=== PATIENT | female | born 1945 | race African-American/Black ===

== ENCOUNTER 2021-04-11 23:15 | Observation (INO) | payer MEDICARE ==
[~2021-04-11] VITALS: Ht 157.5 cm; Wt 88.3 kg
--- NOTE | 2021-04-11 23:25 | PHYS DOC ---
Past History Past Medical History: Cancer General Adult HPI: HPI: "...I was watching [employer] game.. and they... but I guess..I passed out....all I know.. was they were picking me up off.. the floor....I been a little dizzy for a while seeing a cancer doctor for my multiple myeloma..... I did get my flu shot today.. and my Moderna booster..." Patient is a 75 year old female who presents with above hx of dizzy, near syncope event with fall and striking her head. Patient has past medical history of coronary artery disease and has undergone bypass surgery approximately 15 years ago. Has had angioplasty with stent placement since then. Patient recently being treated for multiple myeloma. Patient also has history of asthma, anemia, diverticulitis, hypertension, diabetes, TIA and CVAs. Patient has had endarterectomy on right. Patient follows with Sen [facility] Review of Systems: Review of Systems: Constitutional: Denies fever or chills Eyes: Denies change in visual acuity HENT: Denies nasal congestion or sore throat Respiratory: Denies cough or shortness of breath Cardiovascular: Denies chest pain or edema. Complains of syncope GI: Denies abdominal pain, nausea, vomiting, bloody stools or diarrhea : Denies dysuria Musculoskeletal: Denies back pain or joint pain Integument: Denies rash Neurologic: Denies headache, focal weakness or sensory changes Endocrine: Denies polyuria or polydipsia Lymphatic: Denies swollen glands Psychiatric: Denies depression or anxiety Family History: Family History: Noncontributory to presentation. Current Medications: Current Meds: See nursing for home meds Allergies: Allergies: Allergic to sulfa. Physical Exam: PE: Constitutional: , no acute distress, non-toxic appearance. [] HENT: Normocephalic, atraumatic, bilateral external ears normal, oropharynx moist, no oral exudates, nose normal. [] Eyes: PERRLA, EOMI, conjunctiva pale, no discharge. [] Neck: Normal range of motion, no tenderness, supple, no stridor. [] Cardiovascular:Heart rate regular rhythm, no murmur [] Lungs & Thorax: Bilateral breath sounds to apex and basilar crackles bilaterally on auscultation [] Abdomen: Bowel sounds normal, soft, no tenderness, no masses, no pulsatile masses. Obese Skin: Warm, dry, no erythema, no rash. Pale Back: No tenderness, no CVA tenderness. [] Extremities: No tenderness, no cyanosis, no clubbing, ROM intact, bilateral ankle edema. No cording appreciated. Neurologic: Alert and oriented X 3, normal motor function, normal sensory function, no focal deficits noted. [] Psychologic: Affect anxious, , judgement normal, mood normal. [] EKG: EKG: My interpretation EKG shows sinus rhythm at 81 bpm. Some T wave strain pattern but no findings acute STEMI with contralateral changes. Time of this EKG is 2320 hrs. [] Radiology/Procedures: Radiology/Procedures: [address] [address] IMAGING REPORT Signed PATIENT: SHIVANI RODRIGUEZ ACCOUNT: [id number] : 1945 LOCATION: ER AGE: 75 SEX: F EXAM STATUS: PRE ER ORD. PHYSICIAN: VALENCIA SNOW MD REASON: fall hit head PROCEDURE: CT HEAD AND CERVICAL SPINE WO RS Compliance Statement: One or more of the following individualized dose reduction techniques were utilized for this examination: 1. Automated exposure control 2. Adjustment of the mA and/or kV according to patient size 3. Use of iterative reconstruction technique CT head and cervical spine without contrast 04/11/2021 12:11 AM INDICATION: Fall, hit head COMPARISON: None TECHNIQUE: Multiple axial CT images of the head were obtained from skull base through the vertex without intravenous contrast. Multiple axial CT images of the cervical spine were obtained without intravenous contrast. Coronal and sagittal reformats are provided. FINDINGS: Head: Ventricles, sulci and basal cisterns are within normal limits. There is no hydrocephalus. Gamble-white matter differentiation is normal. There is no acute intracranial hemorrhage. There is no mass, mass effect or midline shift. Type Cutter ior fossa is normal in appearance. Visualized portions of the orbits are normal. Paranasal sinuses are well aerated. Mastoid air cells are well aerated. Scalp and calvaria are normal. Cervical spine: Alignment of the cervical spine is normal. Skull base is intact. Craniocervical junction is normal in appearance. Atlantoaxial articulation is normal. Vertebral body heights are maintained without evidence for acute fracture. Mild facet and uncovertebral joint disease. No significant osseous neural foraminal stenosis. No significant osseous spinal canal stenosis. Transverse foramen are intact. There is no prevertebral soft tissue swelling. Thyroid gland is normal in appearance. Visualized portions of the lung apices are normal without evidence for suspicious pulmonary nodule or infiltrate. IMPRESSION: 1. No acute intracranial hemorrhage. 2. No acute fracture or malalignment of the cervical spine. Mild cervical spondylosis. Electronically signed by: Troy Haddad MD (04/12/2021 12:41 AM) [facility] DICTATED AND SIGNED BY: TROY HADDAD MD DATE: 04/12/2138 CC: VALENCIA SNOW MD ~MTH0 [address] [address] IMAGING REPORT Signed PATIENT: SHIVANI RODRIGUEZ ACCOUNT: [id number] : 1945 LOCATION: ER AGE: 75 SEX: F EXAM STATUS: PRE ER ORD. PHYSICIAN: VALENCIA SNOW MD REASON: fall hit head PROCEDURE: CT HEAD AND CERVICAL SPINE WO [facility] Compliance Statement: One or more of the following individualized dose reduction techniques were ut ilized for this examination: 1. Automated exposure control 2. Adjustment of the mA and/or kV according to patient size 3. Use of iterative reconstruction technique CT head and cervical spine without contrast 04/11/2021 12:11 AM INDICATION: Fall, hit head COMPARISON: None TECHNIQUE: Multiple axial CT images of the head were obtained from skull base through the vertex without intravenous contrast. Multiple axial CT images of the cervical spine were obtained without intravenous contrast. Coronal and sagittal reformats are provided. FINDINGS: Head: Ventricles, sulci and basal cisterns are within normal limits. There is no h ydrocephalus. Gamble-white matter differentiation is normal. There is no acute intracranial hemorrhage. There is no mass, mass effect or midline shift. Posterior fossa is normal in appearance. Visualized portions of the orbits are normal. Paranasal sinuses are well aerated. Mastoid air cells are well aerated. Scalp and calvaria are normal. Cervical spine: Alignment of the cervical spine is normal. Skull base is intact. Craniocervical junction is normal in appearance. Atlantoaxial articulation is normal. Vertebral body heights are maintained without evidence for acute fracture. Mild facet and uncovertebral joint disease. No significant osseous neural foraminal stenosis. No significant osseous spinal canal stenosis. Transverse foramen are intact. There is no prevertebral soft tissue swelling. Thyroid gland is normal in appearance. Visualized portions of the lung apices are normal without evidence for suspicious pulmonary nodule or infiltrate. IMPRESSION: 1. No acute intracranial hemorrhage. 2. No acute fracture or malalignment of the cervical spine. Mild cervical spondylosis. Electronically signed by: Troy Haddad MD (04/12/2021 12:41 AM) [facility] DICTATED AND SIGNED BY: TROY HADDAD MD DATE: 04/12/2138 CC: VALENCIA SNOW MD ~MTH0 0 [][place] [address] IMAGING REPORT Signed PATIENT: SHIVANI RODRIGUEZ ACCOUNT: [id number] : 1945 LOCATION: ER AGE: 75 SEX: F EXAM STATUS: PRE ER ORD. PHYSICIAN: VALENCIA SNOW MD REASON: syncope, fall PROCEDURE: PORTABLE CHEST 1V XR CHEST 1V 04/11/2021 12:11 AM INDICATION: Syncope, fall COMPARISON: None available TECHNIQUE: Portable frontal view of the chest is provided. FINDINGS: The cardiomediastinal silhouette is enlarged. Median sternotomy changes are present. Mild pulmonary vascular congestion. There are no significant pleural effusions. No pneumothorax. Left chest wall cardiac device is identified with a single lead projecting over the right ventricle. No suspicious osseous abnormality. IMPRESSION: Cardiomegaly with mild pulmonary vascular congestion as may be seen with congestive heart failure. Electronically signed by: Troy Haddad MD (04/12/2021 12:39 AM) [facility] DICTATED AND SIGNED BY: TROY HADDAD MD DATE: 04/12/2137 CC: VALENCIA SNOW MD ~MTH0 0 Heart Score: C/O Chest Pain: No HEART Score for Chest Pain: HEART Score for Chest Pain Response (Comments) Value History Slighlty/Non-Suspicious 0 ECG Nonspecific Repolarizatio 1 Age > 65 2 Risk Factors 1 or 2 Risk Factors 1 Troponin < Normal Limit 0 Total 4 Risk Factors: Risk Factors: DM, Current or recent (<one month) smoker, HTN, HLP, family history of CAD, obesity. Risk Scores: Score 0 - 3: 2.5% MACE over next 6 weeks - Discharge Home Score 4 - 6: 20.3% MACE over next 6 weeks - Admit for Clinical Observation Score 7 - 10: 72.7% MACE over next 6 weeks - Early Invasive Strategies Course & Med Decision Making: Course & Med Decision Making Pertinent Labs and Imaging studies reviewed. (See chart for details) Discussed presentation, testing and treatment plan with Dr. Lawrence. Impression: 1. Syncope 2. Multiple myeloma 3. CHF-diastolic dysfunction BNP 8,106 4. Anemia 8.9 Hgb 5. Renal Insuf. Bun 44/ Creat 2.8 6. DM - gluc 136 Note labs are not crossing over- significant ones noted in Impression. ] Dragon Disclaimer: Dragon Disclaimer: This electronic medical record was generated, in whole or in part, using a voice recognition dictation system. Dragon Disclaimer This chart was dictated in whole or in part using Voice Recognition software in a busy, high-work load, and often noisy Emergency Department environment. It may contain unintended and wholly unrecognized errors or omissions. Dragon Disclaimer This chart was dictated in whole or in part using Voice Recognition software in a busy, high-work load, and often noisy Emergency Department environment. It m ay contain unintended and wholly unrecognized errors or omissions. Dragon Disclaimer This chart was dictated in whole or in part using Voice Recognition software in a busy, high-work load, and often noisy Emergency Department environment. It may contain unintended and wholly unrecognized errors or omissions. VALENCIA SNOW MD Apr 11, 2021 23:25
[2021-04-11] MEDS ORDERED: IV RINGERS SOLUTION,LACTATED 1,000 ML IV SCH (23:30)
[2021-04-11 23:55] LABS: BASO # 0.1 x10^3/uL (0.0-0.2); BASO % 1 % (0-3); EOS # 0.1 x10^3/uL (0.0-0.7); EOS % 2 % (0-3); HEMATOCRIT 28.6 % (36.0-47.0); HEMOGLOBIN 8.9 g/dL (12.0-15.5); LYMPH # 2.4 x10^3/uL (1.0-4.8); LYMPH % 35 % (24-48); MEAN CORPUSCULAR HEMOGLOBIN 28 pg (25-35); MEAN CORPUSCULAR HGB CONC 31 g/dL (31-37); MEAN CORPUSCULAR VOLUME 91 fL (79-100); MONO # 0.8 x10^3/uL (0.0-1.1); MONO % 12 % (0-9); NEUT # 3.4 x10^3uL (1.8-7.7); NEUT % 50 % (31-73); PLATELET COUNT 192 x10^3/uL (140-400); RED BLOOD COUNT 3.13 x10^6/uL (3.50-5.40); RED CELL DISTRIBUTION WIDTH 24.3 % (11.5-14.5); WHITE BLOOD COUNT 6.9 x10^3/uL (4.0-11.0)
[2021-04-12 00:01] LABS: CALCIUM 9.4 mg/dL (8.5-10.1); CREATININE 2.8 mg/dL (0.6-1.0); GFR 16.6; POTASSIUM 4.5 mmol/L (3.5-5.1)
[2021-04-12 00:13] LABS: ALBUMIN 3.9 g/dL (3.4-5.0); DIRECT BILIRUBIN 0.4 mg/dL (0.0-0.2); MAGNESIUM 2.5 mg/dL (1.8-2.4); TOTAL BILIRUBIN 0.8 mg/dL (0.2-1.0); TOTAL PROTEIN 7.9 g/dL (6.4-8.2)
[2021-04-12] MEDS ORDERED: ONDANSETRON PF 4 MG/2 ML VIAL. IVP ONE (00:15)
[2021-04-12 00:24] LABS: PLT ESTIMATE ADEQUATE (ADEQUATE)
[2021-04-12 00:25] LABS: ANISOCYTOSIS MOD
--- NOTE | 2021-04-12 00:41 | RAD ---
XR CHEST 1V 04/11/2021 12:11 AM INDICATION: Syncope, fall COMPARISON: None available TECHNIQUE: Portable frontal view of the chest is provided. FINDINGS: The cardiomediastinal silhouette is enlarged. Median sternotomy changes are present. Mild pulmonary v ascular congestion. There are no significant pleural effusions. No pneumothorax. Left chest wall cardiac device is identi fied with a single lead projecting over the right ventricle. No suspicious osseous abnormality. IMPRESSION: Cardiomegaly with mild pulmonary vascular congestion as may be seen with congestive heart failure. Electronically signed by: Kalli Arreola MD (04/12/2021 12:39 AM) [facility]
--- NOTE | 2021-04-12 00:44 | RAD ---
PQRS Compliance Statement: One or more of the following individualized dose reduction techniques were utilized for this examinat ion: 1. Automated exposure control 2. Adjustment of the mA and/or kV according to patient size 3. Use of iterative reconstruction technique CT head and cervical spine without contrast 04/11/2021 12:11 AM INDICATION: Fall, hit head COMPARISON: None TECHNIQUE: Multiple axial CT images of the head were obtained from skull base through the vertex with out intravenous contrast. Multiple axial CT images of the cervical spine were obtained without intrav enous contrast. Coronal and sagittal reformats are provided. FINDINGS: Head: Ventricles, sulci and basal cisterns are within normal limits. There is no hydrocephalus. Gamble-white matter differentiation is normal. There is no acute intracranial hemorrhage. There is no mass, mass e ffect or midline shift. Posterior fossa is normal in appearance. Visualized portions of the orbits are normal. Paranasal sinuses are well aerated. Mastoid air cells a re well aerated. Scalp and calvaria are normal. Cervical spine: Alignment of the cervical spine is normal. Skull base is intact. Craniocervical junction is normal in appearance. Atlantoaxial articulation is normal. Vertebral body heights are maintained without evidence for acute fracture. Mild facet and uncovertebral joint disease. No significant osseous neural foraminal stenosis. No sign ificant osseous spinal canal stenosis. Transverse foramen are intact. There is no prevertebral soft tissue swelling. Thyroid gland is normal in appearance. Visualized port ions of the lung apices are normal without evidence for suspicious pulmonary nodule or infiltrate. IMPRESSION: 1. No acute intracranial hemorrhage. 2. No acute fracture or malalignment of the cervical spine. Mild cervical spondylosis. Electronically signed by: Kalli Arreola MD (04/12/2021 12:41 AM) [facility]
[2021-04-12] MEDS ORDERED: FUROSEMIDE 40 MG/4 ML VIAL IVP ONE (00:45)
[2021-04-12] MEDS ORDERED: ACETAMINOPHEN 325 MG TABLET PO PRN (01:00)
[2021-04-12] MEDS ORDERED: ONDANSETRON PF 4 MG/2 ML VIAL. IVP PRN (01:00)
[2021-04-12 01:57] LABS: AMPHETAMINE/METHAMPHETAMINE NEG (NEG); BARBITURATES NEG (NEG); BENZODIAZEPINES NEG (NEG); CANNABINOIDS NEG (NEG); COCAINE NEG (NEG); METHADONE NEG (NEG); OPIATES NEG (NEG); PHENCYCLIDINE NEG (NEG)
[2021-04-12] MEDS ORDERED: RIVAROXABAN 15 MG TABLET. PO SCH (02:00)
[2021-04-12] MEDS: RIVAROXABAN 15 MG TABLET. PO SCH ×2 (02:28→08:04)
[2021-04-12] MEDS ORDERED: CARV25TA2 PO (02:42)
[2021-04-12 02:46] VITALS: BP 138/79
[2021-04-12] MEDS ORDERED: HYDR-2869 PO (02:55)
[2021-04-12] MEDS ORDERED: ISOS30TA19 PO (02:55)
[2021-04-12] MEDS ORDERED: FLUO20CA22 PO (02:55)
[2021-04-12] MEDS ORDERED: DICY10CA3 PO (02:55)
[2021-04-12] MEDS ORDERED: CRESTOR20 MG PO (02:55)
[2021-04-12] MEDS ORDERED: TRAZODONE (02:55)
[2021-04-12] MEDS ORDERED: BUDE10.2 IH (02:55)
[2021-04-12] MEDS ORDERED: NOVOL (02:55)
[2021-04-12] MEDS ORDERED: CLOP75TA57 PO (02:55)
[2021-04-12] MEDS ORDERED: PREDNIS (02:55)
[2021-04-12] MEDS ORDERED: POTA-112 PO (02:55)
[2021-04-12] MEDS ORDERED: MAGN200T7 PO (02:55)
[2021-04-12] MEDS ORDERED: LISI5TAB15 PO (02:55)
[2021-04-12] MEDS ORDERED: TORS20TA2 PO (02:55)
[2021-04-12] MEDS ORDERED: CHOL10004 PO (02:55)
[2021-04-12] MEDS ORDERED: INSU100V13 SQ (02:55)
[2021-04-12 04:15] LABS: BACTERIA,URINE 0 /HPF (0-FEW); BILIRUBIN,URINE NEG (NEG); CLARITY,URINE CLEAR; COLOR,URINE YELLOW; GLUCOSE,URINE NEG (NEG); NITRITE,URINE NEG (NEG); RBC,URINE 0 /HPF (0-2); SQUAMOUS EPITHELIAL CELL,UR OCC /LPF; WBC,URINE OCC /HPF (0-4)
[2021-04-12 05:00] VITALS: BP 164/91
[2021-04-12] MEDS: IPRATRPIUM/ALBUTEROL 0.5/2.5MG 3 ML NEBU. NEB SCH ×2 (06:00→09:53)
--- NOTE | 2021-04-12 07:43 | EKG ---
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
--- NOTE | 2021-04-12 08:26 | PDOC2 ---
CARDIAC CONSULT DATE OF CONSULT DOS: DATE: 04/12/21 TIME: 08:17 REASON FOR CONSULT Reason for Consult syncope, CHF REFERRING PHYSICIAN Referring Physician Dr. Luevano SOURCE Source: Chart review, Patient HPI History of Present Illness This is a 75 yo female who presented secondary to syncope. Patient reports she was sitting on the toilet having nausea/vomiting and diarrhea when she had syncopal episode. Daughter reports complete LOC. EMS was called. Patient denies any injury. Unsure if she hit her head, but thinks she may have hit her head. Patient reports she was recently diagnosed with multiple myeloma and CKD5. Has not yet began treatment for myeloma as oncologist wanted renal workup prior to initiating. Is scheduled to have renal biopsy tomorrow. Reports having lots of anxiety and has not been sleeping well recently. Also reports intermittent nausea/vomiting. Does have a history of CAD s/p CABG and CHF. Follows with slot operations manager, Dr. Rivera through [facility]. She reports chronic shortness of breath with exertion. Has had some shortness of breath at rest recently. No diaphoresis or palpitations. PAST MEDICAL HISTORY Cardiovascular: CAD, CHF, HTN, hyperipidemia Pulmonary: COPD, Other (FABY) CENTRAL NERVOUS SYSTEM: CVA, TIA Heme/Onc: Anemia NOS Renal/: Chronic renal insuff Endocrine: Diabetes PAST SURGICAL HISTORY Past Surgical History: Other (right carotid endarterectomy ) FAMILY HISTORY Family History: Hypertension SOCIAL HISTORY Smoke: Quit ALCOHOL: none Drugs: None Lives: with Family CURRENT MEDICATIONS Current Medications Current Medications Lactated Ringer's 1,000 ml @ 100 mls/hr Q10H IV Last administered on 04/11/21at 23:49; Start 04/11/21 at 23:30; Stop 04/12/21 at 09:29 Ondansetron HCl (Zofran) 8 mg 1X ONCE IVP Last administered on 04/12/21at 00:29; Start 04/12/21 at 00:15; Stop 04/12/21 at 00:18; Status DC Furosemide (Lasix) 40 mg 1X ONCE IVP Last administered on 04/12/21at 01:58; Start 04/12/21 at 00:45; Stop 04/12/21 at 00:46; Status DC Ondansetron HCl (Zofran) 4 mg PRN Q4HRS PRN IVP NAUSEA/VOMITING Last administered on 04/12/21at 04:15; Start 04/12/21 at 01:00; Stop 04/13/21 at 00:59 Acetaminophen (Tylenol) 650 mg PRN Q4HRS PRN PO FEVER > 100.3'F; Start 04/12/21 at 01:00; Stop 04/13/21 at 00:59 Albuterol/ Ipratropium (Duoneb) 3 ml RTQID NEB Last administered on 04/12/21at 06:00; Start 04/12/21 at 08:00; Stop 04/13/21 at 07:59 Furosemide (Lasix) 40 mg BID92 IVP Last administered on 04/12/21at 08:04; Start 04/12/21 at 09:00 Rivaroxaban (Xarelto) 15 mg BIDWMEALS PO ; Start 04/12/21 at 02:00; Stop 04/12/21 at 01:42; Status DC Rivaroxaban (Xarelto) 15 mg BIDWMEALS PO Last administered on 04/12/21at 02:28; Start 04/12/21 at 02:00 Active Scripts Active Reported [Prednis] [Trazodone] Torsemide 20 Mg Tablet 1 Tab PO DAILY Symbicort 160-4.5 Mcg Inhaler (Budesonide/Formoterol Fumarate) 10.2 Gm Hfa .aer.ad 2 Puff IH BID PRN Klor-Con 10 (Potassium Chloride) 10 Meq Tablet.er 1 Tab PO DAILY 30 Days Plavix (Clopidogrel Bisulfate) 75 Mg Tablet 75 Mg PO DAILY [Novol] Mag-Oxide (Magnesium Oxide) 200 Mg Tablet 400 Mg PO DAILY Lisinopril 5 Mg Tablet 1 Tab PO DAILY Levemir (Insulin Detemir) 100 Unit/1 Ml Vial 25 Unit SQ HS Isosorbide Dinitrate 30 Mg Tablet 1 Tab PO BID 30 Days Hydralazine Hcl 50 Mg Tablet 1 Tab PO TID Fluoxetine Hcl 20 Mg Capsule 1 Cap PO DAILY Dicyclomine Hcl 10 Mg Capsule 10 Mg PO PRN Vitamin D3 (Vitamin D) 25 Mcg Tablet 25 Mcg PO DAILY 1,000 UNITS = 25 MCG Crestor (Rosuvastatin Calcium) 20 Mg Tablet 1 Tab PO DAILY Carvedilol 25 Mg Tablet 25 Mg PO BID ALLERGIES Allergies: Coded Allergies: Sulfa (Sulfonamide Antibiotics) (Verified Allergy, Unknown, 04/11/21) ROS Review of Systems 14 point ROS conducted with pertinent positives noted above in HPI PHYSICAL EXAM General: Alert, Oriented X3, Cooperative, No acute distress HEENT: Atraumatic, Mucous membr. moist/pink Lungs: Clear to auscultation Heart: Regular rate Abdomen: Soft, No tenderness Extremities: No edema, Normal pulses Skin: No breakdown Neuro: Normal speech, Sensation intact Psych/Mental Status: Mental status NL, Mood NL MUSCULOSKELETAL: Osteoarthritic changes both hands VITALS Vital Signs Vital Signs Date Time Temp Pulse Resp B/P (MAP) Pulse Ox O2 Delivery O2 Flow Rate FiO2 04/12/21 06:00 Room Air 04/12/21 05:00 98.3 75 18 164/91 (115) 97 LABS LABS Laboratory Tests Test 04/11/21 23:28 04/12/21 01:22 04/12/21 01:25 04/12/21 03:00 White Blood Count 6.9 x10^3/uL (4.0-11.0) Red Blood Count 3.13 x10^6/uL (3.50-5.40) Hemoglobin 8.9 g/dL (12.0-15.5) Hematocrit 28.6 % (36.0-47.0) Mean Corpuscular Volume 91 fL (79-100) Mean Corpuscular Hemoglobin 28 pg (25-35) Mean Corpuscular Hemoglobin Concent 31 g/dL (31-37) Red Cell Distribution Width 24.3 % (11.5-14.5) Platelet Count 192 x10^3/uL (140-400) Neutrophils (%) (Auto) 50 % (31-73) Lymphocytes (%) (Auto) 35 % (24-48) Monocytes (%) (Auto) 12 % (0-9) Eosinophils (%) (Auto) 2 % (0-3) Basophils (%) (Auto) 1 % (0-3) Neutrophils # (Auto) 3.4 x10^3uL (1.8-7.7) Lymphocytes # (Auto) 2.4 x10^3/uL (1.0-4.8) Monocytes # (Auto) 0.8 x10^3/uL (0.0-1.1) Eosinophils # (Auto) 0.1 x10^3/uL (0.0-0.7) Basophils # (Auto) 0.1 x10^3/uL (0.0-0.2) Platelet Estimate Adequate (ADEQUATE) Anisocytosis Mod Microcytosis Prothrombin Time 12.0 SEC (9.4-11.4) Prothromb Time International Ratio 1.2 (0.9-1.1) Activated Partial Thromboplast Time 23 SEC (23-33) D-Dimer (Renee) 2.38 mg/L (0.00-0.50) Sodium Level 141 mmol/L (136-145) Potassium Level 4.5 mmol/L (3.5-5.1) Chloride Level 105 mmol/L (98-107) Carbon Dioxide Level 26 mmol/L (21-32) Anion Gap 10 (6-14) Blood Urea Nitrogen 44 mg/dL (7-20) Creatinine 2.8 mg/dL (0.6-1.0) Estimated GFR (Cockcroft-Gault) 16.6 BUN/Creatinine Ratio 16 (6-20) Glucose Level 136 mg/dL (70-99) Calcium Level 9.4 mg/dL (8.5-10.1) Magnesium Level 2.5 mg/dL (1.8-2.4) Total Bilirubin 0.8 mg/dL (0.2-1.0) Direct Bilirubin 0.4 mg/dL (0.0-0.2) Aspartate Amino Transf (AST/SGOT) 29 U/L (15-37) Alanine Aminotransferase (ALT/SGPT) 31 U/L (14-59) Alkaline Phosphatase 114 U/L (46-116) Creatine Kinase 44 U/L (26-192) Troponin I High Sensitivity 28 ng/L (4-50) 34 ng/L (4-50) XD-Sxq-E-Type Natriuretic Peptide 8106 pg/mL (0-124) Total Protein 7.9 g/dL (6.4-8.2) Albumin 3.9 g/dL (3.4-5.0) Albumin/Globulin Ratio 1.0 (1.0-1.7) Lipase 220 U/L (73-393) Urine Collection Type Unknown Urine Color Yellow Urine Clarity Clear Urine pH 5.5 Urine Specific [place] 1.020 Urine Protein 100 mg/dl (NEG-TRACE) Urine Glucose (UA) Neg mg/dL (NEG) Urine Ketones (Stick) Neg mg/dL (NEG) Urine Blood Neg (NEG) Urine Nitrite Neg (NEG) Urine Bilirubin Neg (NEG) Urine Urobilinogen Dipstick 1.0 mg/dL (0.2 mg/dL) Urine Leukocyte Esterase Neg (NEG) Urine RBC 0 /HPF (0-2) Urine WBC Occ /HPF (0-4) Urine Squamous Epithelial Cells Occ /LPF Urine Bacteria 0 /HPF (0-FEW) Urine Opiates Screen Neg (NEG) Urine Methadone Screen Neg (NEG) Urine Barbiturates Neg (NEG) Urine Phencyclidine Screen Neg (NEG) Urine Amphetamine/Methamphetamine Neg (NEG) Urine Benzodiazepines Screen Neg (NEG) Urine Cocaine Screen Neg (NEG) Urine Cannabinoids Screen Neg (NEG) Urine Ethyl Alcohol Neg (NEG) SARS-CoV-2 Antigen (Rapid) Negative (NEGATIVE) Test 04/12/21 07:49 Glucose (Fingerstick) 140 mg/dL (70-99) ASSESSMENT/PLAN Assessment/Plan 1. Syncope; most probable vasovagal as this occurred during episode of vomiting on stool. CT head without acute change. No acute events on tele. 2. Mild acute on chronic probable diastolic CHF; s/p IV diuresis 3. CAD s/p remote CABG; follows with slot operations manager, Dr. Rivera with [facility] 4. Hypertension; controlled 5. Hyperlipidemia; statin 6. Diabetes, II 7. CKD; renal biopsy planned 8. Anemia 9. H/o CVA 10. Multiple myeloma; recent diagnosis Recommendations Resume oral diuretic therapy Resume secondary prevention including ASA/Plavix and statin therapy Echo to assess LV systolic function Could consider outpatient event monitor; will defer to primary slot operations manager Supportive care PARISA MADRID APRN Apr 12, 2021 08:26
[2021-04-12] MEDS ORDERED: FUROSEMIDE 40 MG/4 ML VIAL IVP SCH (09:00)
--- NOTE | 2021-04-12 09:49 | CONS ---
DATE OF CONSULTATION: 04/12/2021 NEUROLOGY CONSULT REASON FOR CONSULTATION: Syncopal versus seizure. HISTORY OF PRESENT ILLNESS: This is a 75-year-old right-handed -[place] female, was admitted through Emergency Room after she presented with a chief complaint of possible syncopal episode. According to the patient, she woke up this morning going to bathroom, she felt dizzy as a spinning while sitting on the toilet seat. She got nauseated and vomited once. Apparently, she was witnessed by her daughter having a spell of loss of consciousness, lasted 8 minutes after she fell to the floor and hit her head. The patient did not recall the events. Today, she denies headaches, visual disturbances, but she had intermittent nausea. She did not vomit this morning. She denies chest pain, shortness of breath or palpitation, dysarthria or dysphagia. The patient stated she has been having dizzy spell, mainly when she laid down on her left side. In Emergency Room, she was found alert and oriented with blood pressure 138/85. Initial nonenhanced CT scan revealed no evidence of acute intracranial process and CT of the cervical spine revealed mild spondylosis. PAST MEDICAL HISTORY: Positive for coronary artery disease, congestive heart failure, hypertension, hyperlipidemia, COPD, obstructive sleep apnea, diabetes mellitus, anemia, multiple myeloma. However, she denies stroke, but probably she had a TIA. PAST SURGICAL HISTORY: Positive for coronary artery bypass graft, right endarterectomy, coronary angioplasty, required a stent placement. FAMILY HISTORY: Noncontributory. SOCIAL HISTORY: The patient denies smoking, alcohol drinking or illicit drug use. CURRENT MEDICATIONS: Furosemide 40 mg b.i.d., albuterol inhaler and nebulizer, Xarelto 15 mg b.i.d., Tylenol, Zofran 4 mg p.r.n. At home, she was taking Plavix 75 mg daily, hydralazine 50 mg daily, insulin Levemir, lisinopril 5 mg daily, magnesium oxide, potassium chloride, Crestor 20 mg daily, vitamin D. ALLERGIES: SULFONAMIDE ANTIBIOTICS AND SULFA DRUGS. REVIEW OF SYSTEMS: A 10-point review of system as mentioned above in history of present illness, otherwise unremarkable. PHYSICAL EXAMINATION: GENERAL: Well-developed, well-nourished -[place] female in no acute distress. She weighs 88.3 kilos. VITAL SIGNS: Blood pressure 164/91, respiratory rate 18, pulse is 75 and regular, oxygen saturation 97% on room air and temperature 98.3. HEENT: Normocephalic, atraumatic, otherwise unremarkable. NECK: Supple, negative for carotid bruit, lymphadenopathy or thyromegaly. LUNGS: Clear to A and P. CARDIAC: Regular rate and rhythm, normal S1, S2. There is no S3, S4 or murmur. ABDOMEN: Soft. Bowel sounds positive. EXTREMITIES: Negative for cyanosis, clubbing or pedal edema. NEUROLOGIC: Mental status: The patient is alert and oriented x3. Speech is fluent. There is no language dysfunction. Memory, judgment and abstracting thinkings are normal. The patient denies hallucination or delusion. Cranial nerves: Visual pride are full. The pupils are reactive to light and accommodation. The extraocular movements are intact. There is no nystagmus. There is no facial motor or sensory deficit. Hearing is intact bilaterally. The palate is elevated symmetrically. Sternocleidomastoid muscles are powerful bilaterally. The patient shrugs her shoulders symmetrically, protrudes her tongue in the midline without fasciculation or atrophy. Motor Examination: No focal muscle bulk wasting. The tone is normal. The strength is 4/5 throughout. Sensory examination revealed normal pinprick, light touch, vibratory and position senses. Deep tendon reflexes were symmetric and hypoactive with absent Achilles responses. Gait not tested. IMAGING DATA: EKG revealed a normal sinus rhythm at 81. LABORATORY DATA: CBC revealed white blood cells of 6.9 thousand, hemoglobin 8.9, hematocrit 38.6, platelet count 192,000. Chemistry reveals sodium 141, potassium 4.5, chloride 105, CO2 of 26, BUN 44, creatinine 2.8, glucose 136, calcium 9.4. Liver enzymes are normal. Troponin level is elevated at 28. Urinalysis is negative for urinary tract infection. Urine drug screen is negative. Rapid COVID test is negative. IMPRESSION: 1. Syncopal episode followed by nausea and vomiting with metabolic derangement consistent with renal failure and possible dehydration. However, a nonconvulsive seizure should be ruled out. 2. Multiple myeloma, ongoing treatment. 3. Multiple medical problems include hypertension, hyperlipidemia, coronary artery disease, renal failure, anemia, obstructive sleep apnea and chronic obstructive pulmonary disease. RECOMMENDATIONS: 1. Continue with current management initiated by Dr. Lawrence. 2. Correct the underlying metabolic derangement and treat the underlying anemia. 3. We will arrange for electroencephalogram on outpatient basis. SONIA DR: Ankit TID: [id number]
[2021-04-12] MEDS ORDERED: LISINOPRIL 5 MG TABLET. PO SCH (10:15)
[2021-04-12] MEDS ORDERED: ISOSORBIDE DINITRATE 10 MG TABLET. PO SCH (10:15)
[2021-04-12] MEDS ORDERED: CLOPIDOGREL BISULFATE 75 MG TABLET PO SCH (10:15)
[2021-04-12] MEDS ORDERED: TORSEMIDE 20 MG TABLET. PO SCH (10:15)
[2021-04-12] MEDS ORDERED: MAGNESIUM OXIDE 400 MG TABLET PO SCH (10:15)
[2021-04-12] MEDS ORDERED: ATORVASTATIN CALCIUM 20 MG TABLET PO SCH (10:15)
[2021-04-12 11:48] VITALS: BP 167/92
[2021-04-12 14:10] VITALS: BP 156/76
[2021-04-12 14:12] VITALS: BP 155/92
[2021-04-12] MEDS ORDERED: NON FORMULARY ITEM (Budesonide/Formoterol Fumarate (Symbicort 160-4.5 Mcg Inhaler) 2 PUFF) IH PRN (14:15)
--- NOTE | 2021-04-12 15:46 | CARD ---
MR#: [id number] Date of Study: 04/12/2021 Ordering Physician: PARISA MADRID, Referring Physician: PARISA MADRID, Tech: Gricel Dalhenriqueradha [facility] APPROVED REPORT EXAM: Two-dimensional and M-mode echocardiogram with Doppler and color Doppler. Other Information Quality : AverageHR: 74bpm INDICATION Dizziness and Vertigo Cardiac Disease: CAD Syncope Surgery/Intervention CABG: Date: 2004 RISK FACTORS Hypertension 2D DIMENSIONS RVDd3.5 (2.9-3.5cm)Left Atrium(2D)4.2 (1.6-4.0cm) IVSd0.9 (0.7-1.1cm)Aortic Root(2D)2.7 (2.0-3.7cm) LVDd6.2 (3.9-5.9cm)LVOT Diameter2.1 (1.8-2.4cm) PWd1.2 (0.7-1.1cm)LVDs5.2 (2.5-4.0cm) FS (%) 16.2 %SV65.3 ml LVEF(%)33.4 (>50%) Aortic Valve AoV Peak Uriel.150.0cm/sAoV VTI30.6cm AO Peak GR.9.0mmHgLVOT Peak Uriel.123.0cm/s LVOT VTI 24.27cmAO Mean GR.5mmHg DOUG (VMAX)2.92fa9TAS (VTI)2.62cm2 Mitral Valve MV E Lxqfhnbt249.0cm/sMV E Peak Gr.111mmHg MV DECEL [id number] A Iczqjzyv541.6cm/s MV E Mean Gr.52mmHgE/A Ratio1.5 Pulmonary Valve PV Peak Ytgnmbdf92.5cm/sPV Peak Grad.4mmHg Tricuspid Valve TR P. Vrzautuw547xn/sRAP [id number] TR Peak Gr.92qcUsPYXB75mrZy LEFT VENTRICLE The Left Ventricle is moderately dilated. There is mild concentric left ventricular hypertrophy. The left ventricular systolic function is severely impaired. The ejection fraction is estimated at 25%. T issue Doppler imaging reveals moderate left ventricular diastolic dysfunction. RIGHT VENTRICLE The right ventricle is mildly dilated. There is normal right ventricular wall thickness. Systolic fun ction is mildly reduced. There is a pacemaker lead in the right ventricle. ATRIA The left atrium is moderately dilated. The right atrium is mildly dilated. The interatrial septum is intact with no evidence for an atrial septal defect or patent foramen ovale as noted on 2-D or Dopple r imaging. AORTIC VALVE The aortic valve is not well visualized. Doppler and Color Flow revealed trace aortic regurgitation. There is no significant aortic valvular stenosis. Calculated aortic valve area is 3.0 cm2 with maximu m pressure gradient of 9 mmHg and mean pressure gradient of 5 mmHg. MITRAL VALVE The mitral valve is normal in structure and function. There is no evidence of mitral valve prolapse. There is no mitral valve stenosis with an mean gradient of 3.71 mmHg. Doppler and Color-flow revealed mild to moderate mitral regurgitation. TRICUSPID VALVE The tricuspid valve is normal in structure and function. Doppler and Color Flow revealed mild to mode rate tricuspid regurgitation with an estimated PAP of 77 mmHg. There is severe pulmonary hypertension . There is no tricuspid valve stenosis. PULMONIC VALVE The pulmonary valve is normal in structure and function. Doppler and Color Flow revealed mild pulmoni c valvular regurgitation. GREAT VESSELS The aortic root is normal in size. The ascending aorta is normal in size. The IVC is dilated and kiah apses <50% with inspiration. PERICARDIAL EFFUSION There is no evidence of significant pericardial effusion. Critical Notification Critical Value: No <Conclusion> The left ventricular systolic function is severely impaired. The ejection fraction is estimated at 25%. Tissue Doppler imaging reveals moderate left ventricular diastolic dysfunction. Pacer/ICD lead noted RA/RV. Mild to moderate mitral regurgitation. Mild to moderate tricuspid regurgitation with an estimated PAP of 77 mmHg. There is no evidence of significant pericardial effusion. Signed by : Salvatore Kaur, Electronically Approved : 04/12/2021 15:46:01
--- NOTE | 2021-04-12 15:55 | SSS ---
DATE OF SERVICE: 04/12/2021 ADMIT DATE: 04/12/2021 HISTORY OF PRESENT ILLNESS: The patient is a 75-year-old -[place] female patient who presented to the Emergency Room with syncope. She apparently was nauseous and was sitting on the toilet seat and was having a bowel movement and dry heaving into a trash can and she apparently had a syncopal episode and fell forward. According to the patient, her daughter found unresponsive in the bathroom. She did not recall hitting her head, and was brought to the Emergency Room for further evaluation and treatment. She was extensively investigated and has had imaging studies as well as lab work. Her chest x-ray was unremarkable, which showed cardiomegaly with mild pulmonary vascular congestion as may be seen with congestive heart failure. She also had CT scan of the head and cervical spine, which showed that there is no acute intracranial hemorrhage, no acute fracture or malalignment of the cervical spine. Does have mild cervical spondylosis. Her lab work showed that her white cell count was 6900. She has anemia that is normochromic normocytic, and her chemistry showed that she has chronic kidney disease with a creatinine of 2.8. Her BNP was slightly elevated at 8106; however, 3 sets of cardiac enzymes showed no evidence of myocardial infarction. The patient was admitted for further evaluation. She was seen by the Cardiology team as well as the neurologist. The neurologist recommended an EEG as an outpatient and the exhibition carver recommended an echocardiogram to assess left ventricular systolic function and to consider outpatient event monitor, although they deferred that to the primary exhibition carver. When I saw her, she had no further episode of syncope, no nausea, no vomiting, no diarrhea, no abdominal pain. PAST MEDICAL HISTORY: Significant for hypertension, hyperlipidemia, type 2 diabetes mellitus, coronary artery disease status post PCI and stent deployment, as well as coronary artery bypass graft surgery. She has chronic kidney disease, multiple myeloma, anemia, history of uterine cancer and obstructive sleep apnea. PAST SURGICAL HISTORY: Significant for bone marrow biopsy x2, kidney biopsy recently. She has bilateral cataract extraction, total abdominal hysterectomy, bilateral salpingo-oophorectomy. She has also right carotid endarterectomy. ALLERGIES: SHE IS ALLERGIC TO SULFA DRUGS. MEDICATIONS: She is currently on the following medication: She is on dicyclomine 10 mg 4 times a day, Plavix 75 mg once a day, hydralazine 50 mg 3 times a day, isosorbide dinitrate 30 mg twice a day, carvedilol 25 mg twice a day, lisinopril 5 mg once a day, fluoxetine 20 mg once a day, potassium chloride 10 mEq once a day, torsemide 20 mg once a day, Symbicort 160/4.5 two puffs twice a day, magnesium oxide 400 mg daily, Levemir insulin 25 units at bedtime, cholecalciferol 1000 mcg once a day, Crestor 20 mg once a day. FAMILY HISTORY: She has 5 brothers and 8 sisters, all . Her father of tuberculosis, cannot remember his age. Mother of pancreatic cancer. One of her sisters had breast cancer, one of multiple myeloma. The other one of cerebrovascular accident. SOCIAL HISTORY: She is , has 1 son and 3 daughters. She quit smoking 11 years ago. She does not drink alcohol or use recreational drugs. 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 Her daughter and her son are currently living with her. REVIEW OF SYSTEMS: The patient denied any blurring of vision, cataract, glaucoma or macular degeneration. Denied any earache, tinnitus or sensory deafness. Denied nosebleed, stuffy nose or postnasal drip. Denied any sore throat, sore tongue, toothache, hoarseness of voice or difficulty swallowing. Denied nausea, vomiting, diarrhea or constipation. Denied any hematemesis, melena or hematochezia. PHYSICAL EXAMINATION: GENERAL: When I examined her, she was resting slightly propped up in bed, in no apparent respiratory distress, somewhat pale. No jaundice, cyanosis or thyromegaly. No jugular venous distention. No limb edema. VITAL SIGNS: Her heart rate was 74, blood pressure 167/92, temperature was 97.3, respiratory rate was 18 and oxygen saturation was 96% on room air. HEAD, EYES, EARS, NOSE, AND THROAT: Normocephalic, atraumatic. NECK: Supple. HEART: Showed normal first and second heart sounds. No gallop, rub or murmur. CHEST: Clear to auscultation, no crepitation or rhonchi. ABDOMEN: Distended, soft, nontender. NEUROLOGIC: She was awake, alert, responding appropriately. All cranial nerves intact. She moves all extremities without assistance or assistive devices. She has had orthostatic blood pressure measured. There is no evidence of postural hypotension. LABORATORY DATA: Showed a white cell count of 6900, hemoglobin 9, hematocrit 29, MCV 91, and platelet count 192,000 with normal manual differential. Her prothrombin time, INR and APTT were normal. D-dimer was 202.38. Her chemistry showed a serum sodium 141, potassium 4.5, chloride 105, bicarbonate 26, anion gap of 10, BUN 44, creatinine 2.8. Estimated GFR was 16 mL per minute. Her glucose was 136, calcium was 9.4, magnesium was 2.5. Total bilirubin, AST, ALT, alkaline phosphatase were normal. Beta natriuretic peptide was 8106. Total protein 7.9, albumin 3.9 and her 3 sets of cardiac enzymes ruled out myocardial infarction. Urinalysis was unremarkable and toxic screen was essentially negative. CT scan of the head and neck showed no acute intracranial hemorrhage, no acute fracture or malalignment of the cervical spine. The patient will be discharged home to follow with her primary exhibition carver and she has an appointment tomorrow to be seen at [facility] in [place] for her to follow up with her business strategy manager as she had a kidney biopsy done recently. FINAL DISCHARGE DIAGNOSES: 1. Vasovagal syncope. 2. Mild bxoyr-cj-siapryr probably diastolic congestive heart failure responding to IV diuresis. 3. Coronary artery disease status post coronary artery bypass graft. 4. Hypertension. 5. Hyperlipidemia. 6. Type 2 diabetes mellitus. 7. Chronic kidney disease, for which she underwent kidney biopsy recently about a week ago. 8. Anemia of chronic kidney disease. 9. History of cerebrovascular accident. 10. Right carotid artery endarterectomy. 11. Multiple myeloma. DONNA/TAB/VIS DR: DONNA/alisa TID: [id number]
[2021-04-12] MEDS ORDERED: CARVEDILOL 12.5 MG TABLET PO SCH (17:00)
[2021-04-12] MEDS ORDERED: BUDESONIDE 0.5 MG/2 ML NEBU NEB SCH (20:00)
[2021-04-12] MEDS ORDERED: INSULIN GLARGINE SYRINGE. SQ SCH (21:00)
[2021-04-12] MEDS ORDERED: DICYCLOMINE HCL 10 MG CAPSULE PO SCH (21:00)
[2021-04-13] MEDS ORDERED: CHOLECALCIFEROL (VITAMIN D3) 1,000 UNIT TABLET PO SCH (09:00)
[2021-04-13] MEDS ORDERED: POTASSIUM CHLORIDE 10 MEQ TABLET.ER. PO SCH (09:00)
== END 2021-04-12 15:45 | disposition home or self-care (01) ==
LOC: ER 23:15 → 1 SOUTH 04-12 00:59 → INTOOBSV 04-12 00:59
PROVIDERS: ADMIT Internal Medicine; ATTEND Internal Medicine
DX: R55 Syncope and collapse (principal); Z20.822 Contact with and (suspected) exposure to COVID-19; I13.2 Hypertensive heart and chronic kidney disease with heart failure and with stage 5 chronic kidney disease, or end stage renal disease; I50.33 Acute on chronic diastolic (congestive) heart failure; N18.5 Chronic kidney disease, stage 5; D63.1 Anemia in chronic kidney disease; C90.00 Multiple myeloma not having achieved remission; E11.22 Type 2 diabetes mellitus with diabetic chronic kidney disease; E78.5 Hyperlipidemia, unspecified; G47.33 Obstructive sleep apnea (adult) (pediatric); I25.10 Atherosclerotic heart disease of native coronary artery without angina pectoris; I25.5 Ischemic cardiomyopathy; J44.9 Chronic obstructive pulmonary disease, unspecified; F41.9 Anxiety disorder, unspecified; E66.9 Obesity, unspecified; Z85.42 Personal history of malignant neoplasm of other parts of uterus; Z87.891 Personal history of nicotine dependence; Z90.710 Acquired absence of both cervix and uterus; Z95.1 Presence of aortocoronary bypass graft; Z95.5 Presence of coronary angioplasty implant and graft; Z98.41 Cataract extraction status, right eye; Z98.42 Cataract extraction status, left eye; Z88.2 Allergy status to sulfonamides; Z68.35 Body mass index [BMI] 35.0-35.9, adult; Z79.899 Other long term (current) drug therapy; Z98.890 Other specified postprocedural states; Z86.73 Personal history of transient ischemic attack (TIA), and cerebral infarction without residual deficits; Z79.02 Long term (current) use of antithrombotics/antiplatelets; Z79.4 Long term (current) use of insulin
CPT/HCPCS: 36415; 70450; 71045; 72125; 80048; 80053; 80061; 80076; 80307; 81001; 82550; 82947; 83690; 83735; 83880; 84443; 84484; 85025; 85379; 85610; 85730; 87426; 93005; 93306; 94640; 96374; 96375; 96376; 99285; G0378; J1940; J2405; J7120; U0003; 96361; G0379

== ENCOUNTER 2021-07-28 15:01 | Emergency (ER) | payer MEDICARE ==
[~2021-07-28] VITALS: Ht 157.5 cm; Wt 88.3 kg
[~2021-07-28 15:01] MED LIST: BUDE10.2 IH; CARV25TA2 PO; CHOL10004 PO; CLOP75TA57 PO; CRESTOR20 MG PO; DICY10CA3 PO; FLUO20CA22 PO; HYDR-2869 PO; INSU100V13 SQ; ISOS30TA19 PO; LISI5TAB15 PO; MAGN200T7 PO; NOVOL; POTA-112 PO; PREDNIS; TORS20TA2 PO; TRAZODONE
--- NOTE | 2021-07-28 15:20 | PHYS DOC ---
Past History Past Medical History: Cancer Additional Past Medical Histor: multiple myeloma, uterine CA, stage V kidney Past Surgical History: Angioplasty, Cancer Surgery, Coronary Bypass Surgery, Other Additional Past Surgical Histo: stents Alcohol Use: None Adult General Chief Complaint Chief Complaint: WEAKNESS/GENERALIZED HPI HPI Patient is a 76-year-old female presenting via EMS for syncope. This is an acute issue. Reports she lives at home with her son and daughter and had one episode yesterday. She was in the kitchen not utilizing her walker which she should be during ambulation when she turned after closing the refrigerator and got lightheaded, had reported syncopal episode and fell. She fell and reportedly hit head on hardwood tile floor, unsure if she lost consciousness but patient reports she is able to remember majority of event initially landing on left lateral chest wall and then hitting posterior portion of head. She was able to get up with assistance and went on about her day without difficulties. She slept well overnight and upon awaking, reportedly felt more weak and lethargic than usual prompting her to miss her previously scheduled chemotherapy for multiple myeloma at [facility]. She was later on the commode attempting to urinate when she had a witnessed episode of lightheadedness and potential syncopal episode by son without any obvious blood loss, trauma, falls or other concerning findings. Nonetheless, patient looked pale which concerned son prompting EMS to be called. On arrival, patient's [id number] glucose and remaining vitals unremarkable. She was feeling better but episodes of fatigue, questionable syncopal episodes, and fall prompted patient to be transported to our facility for evaluation. On arrival, patient reports feeling better but has dull headache, posterior neck pain, and reproducible left lateral chest wall pain. Confirms she has history of multiple myeloma for which she has been attending chemotherapy sessions at [facility]. She is also on chronic steroid therapy for pre-chemotherapy and clopidogrel for prior history of CAD without other blood thinners/anticoagulants. Review of Systems Review of Systems Fourteen body systems of review of systems have been reviewed. See HPI for pertinent positives and negative responses, other jaime all other systems are negative, non-pertinent or non-contributory Allergies Allergies Allergies Coded Allergies Type Severity Reaction Last Updated Verified Sulfa (Sulfonamide Antibiotics) Allergy Unknown 04/11/21 Yes Physical Exam Physical Exam Constitutional: Pt is oriented to person, place, and time. Pt appears well-developed and well- nourished. Age-appropriate HEENT: Head: Normocephalic and atraumatic. TMs clear, no hemotympanum Conjunctivae and EOM are normal. Pupils are equal, round, and reactive to light. Oropharynx is clear and moist. No hematomas or lacerations or abrasions to face or scalp OP clear, no blood, no malocclusion, dentition intact Nares clear, no nasal septal hematoma Midface stable Neck: C-spine midline nontender, no step-offs Cardiovascular: Normal rate, regular rhythm and normal heart sounds. Pulmonary/Chest: Effort normal and breath sounds normal. No respiratory distress. No wheezes. CTA bilaterally. Right upper outer chest port present, left upper outer ICD pacemaker present. Tenderness to palpation of left lateral chest wall without any visual and/or palpable abnormalities Abdominal: Soft. Bowel sounds are normal. Pt exhibits no distension. There is no tenderness. Musculoskeletal: No bony tenderness to extremities, no deformities, full ROM extremities Chest wall stable Pelvis stable and non-tender No vertebral TTP and spine without stepoffs Neurological: Pt is alert and oriented to person, place, and time. Moving all extremities willfully, able to wiggle all fingers and toes Alert and oriented x 3 Motor and sensory function fully intact Cranial nerves II through XII intact No saddle anesthesia Skin: Skin is warm and dry. No abrasions, no lacerations Psychiatric: Behavior is appropriate for situation Current Patient Data Vital Signs Vital Signs Date Time Temp Pulse Resp B/P (MAP) Pulse Ox O2 Delivery O2 Flow Rate FiO2 07/28/21 15:07 98.2 75 16 115/52 (73) 99 Room Air Lab Results Laboratory Tests Test 07/28/21 15:43 07/28/21 15:46 Glucose (Fingerstick) 101 mg/dL White Blood Count 8.9 x10^3/uL Red Blood Count 3.11 x10^6/uL Hemoglobin 9.5 g/dL Hematocrit 29.1 % Mean Corpuscular Volume 94 fL Mean Corpuscular Hemoglobin 31 pg Mean Corpuscular Hemoglobin Concent 33 g/dL Red Cell Distribution Width 17.9 % Platelet Count 165 x10^3/uL Neutrophils (%) (Auto) 64 % Lymphocytes (%) (Auto) 13 % Monocytes (%) (Auto) 12 % Eosinophils (%) (Auto) 11 % Basophils (%) (Auto) 0 % Neutrophils # (Auto) 5.7 x10^3uL Lymphocytes # (Auto) 1.2 x10^3/uL Monocytes # (Auto) 1.0 x10^3/uL Eosinophils # (Auto) 1.0 x10^3/uL Basophils # (Auto) 0.0 x10^3/uL Sodium Level 139 mmol/L Potassium Level 3.1 mmol/L Chloride Level 100 mmol/L Carbon Dioxide Level 33 mmol/L Anion Gap 6 Blood Urea Nitrogen 95 mg/dL Creatinine 3.1 mg/dL Estimated GFR (Cockcroft-Gault) 17.8 Glucose Level 103 mg/dL Calcium Level 8.9 mg/dL Magnesium Level 1.8 mg/dL Troponin I High Sensitivity 33 ng/L DE-Zkg-N-Type Natriuretic Peptide 2143 pg/mL Current Medications Medications (Trade) Dose Ordered Sig/[place] Route PRN Reason Start Time Stop Time Status Last Admin Dose Admin Sodium Chloride 500 ml @ 0 mls/hr 1X ONCE IV 07/28/21 16:30 07/28/21 16:31 DC 07/28/21 16:30 Potassium Chloride (Klor-Con) 40 meq 1X ONCE PO 07/28/21 16:30 07/28/21 16:31 DC 07/28/21 16:30 EKG EKG EKG ordered and interpreted by myself 1537 hrs. as sinus rhythm at 73 bpm, unremarkable intervals besides QTC 480, T wave inversion noted in lead I and aVL, no STEMI Radiology/Procedures Radiology/Procedures CT HEAD AND C-SPINE WO History: Syncope. Fall posterior head and midline neck pain. Comparison: 04/12/2021 Technique: Noncontrast CT of the head and cervical spine. Findings: CT HEAD: There is no evidence for intracranial mass or hemorrhage. There is no hydrocephalus or midline shift. No abnormal extra-axial fluid collections are present. No evidence of acute territorial infarction. Mild volume loss. Minimal left greater than right maxillary sinus nuchal periosteal thickening. The skull and scalp are within normal limits. CT CERVICAL SPINE: There is no evidence for fracture in the cervical spine. Alignment is normal. Mild cervical spondylosis. No destructive osseous lesions are seen. Carotid and vertebral artery atherosclerotic calcifications. Limited evaluation of the soft tissues of the neck and of the upper chest is unremarkable. Impression: 1. No acute intracranial findings. 2. No acute osseous abnormality in the cervical spine. ///////////////////////////////////////////////////////////// ////////////////////////// EXAM: CT CHEST WITHOUT CONTRAST HISTORY: Fall, midline pain at T3. Left lateral chest wall pain. COMPARISON: Chest radiograph 04/12/2021 TECHNIQUE: Helical CT of the chest performed without contrast. Coronal and sagittal reformats were obtained. One or more of the following individualized dose reduction techniques were utilized for this examination: 1. Automated exposure control 2. Adjustment of the mA and/or kV according to patient size 3. Use of iterative reconstruction technique. FINDINGS: Thyroid gland and thoracic inlet: Thyroid gland is normal. Heart and great vessels: Heart is mildly enlarged. There are surgical changes of CABG. [place] coronary artery calcifications. There is a defibrillator terminating in the right ventricle. A right chest wall port tip terminates at the superior cavoatrial junction. The thoracic aorta is normal in caliber. There is mild calcified moderate calcified aortic atherosclerosis with probable narrowing of the proximal left subclavian artery. The main pulmonary artery is enlarged measuring 4.4 cm consistent with pulmonary arterial hypertension. Mediastinum and coreen: No lymphadenopathy. There are small mediastinal lymph nodes, nonspecific. Small hiatal hernia. Lungs and pleura: There is a 1 cm nodular opacity in the lateral left lower lobe (image 66, series 2). There are a few additional scattered 2 to 3 mm pulmonary nodules. Mild airway wall thickening. No pleural effusion or pneumothorax. Chest wall and axillae: No axillary lymphadenopathy. Upper abdomen: There is a 2.1 cm benign fat-containing left adrenal nodule. Bilateral adrenal calcifications are likely sequela of remote adrenal hemorrhages. There is severe right renal atrophy. Bones: Mild superior endplate deformities of T2 and T3, likely old or degenerative. No definite acute fracture. IMPRESSION: 1. Cardiomegaly. Surgical changes of CABG. Moderate calcified atherosclerosis. 2. Enlarged main pulmonary artery consistent with pulmonary arterial hypertension. 3. 1 cm nodular opacity in the lateral left lower lobe. Recommend follow-up CT in 3 months to ensure resolution. 4. No acute fracture. Mild chronic appearing superior endplate deformities of T2 and T3. 5. Severe right renal atrophy. Electronically signed by: Lesli Black MD (07/28/2021 5:49 PM) [facility] Heart Score C/O Chest Pain: No HEART Score for Chest Pain: HEART Score for Chest Pain Response (Comments) Value History Slighlty/Non-Suspicious 0 ECG Nonspecific Repolarizatio 1 Age > 65 2 Risk Factors >3 Risk Factors or Hx CAD 2 Troponin < Normal Limit 0 Total 5 Risk Factors: Risk Factors: DM, Current or recent (<one month) smoker, HTN, HLP, family history of CAD, obesity. Risk Scores: Risk Factors: DM, Current or recent (<one month) smoker, HTN, HLP, family history of CAD, obesity. Course & Med Decision Making Course & Med Decision Making ABCs unremarkable HPI physical exam and comprehensive ER work-up nonconcerning for any emergent or surgical issues I disclosed entirety of ER work-up with patient that is high risk with numerous comorbid conditions. Given potential presyncopal/syncopal episodes, I recommended admission. Patient deferred voicing she wanted to be discharged home and had good home support I contacted son via phone with patient present and reviewed case in its entirety. Joint decision among patient and son to discharge home as patient will be returning home under care of his son and daughter. She will utilize her walker. She has good access to PCP and outpatient specialist and can be seen within 24 hours. She is aware there is risk with being discharged home but feels comfortable knowing that she has good family support and good outpatient follow- up I did disclose that this might be an acute presentation of more concerning pathology given symptoms and reported episodes without clear diagnosis. Did disclose finding of low potassium that was fixed with supplemental potassium, they understand need for recheck in outpatient setting Ultimately, strict return precautions were discussed with good understanding by patient and son, all questions and concerns addressed prior to ER departure Dragon Disclaimer Dragon Disclaimer This electronic medical record was generated, in whole or in part, using a voice recognition dictation system. Departure Departure: Impression: Primary Impression: Syncope Additional Impressions: History of fall Hypokalemia Disposition: HOME / SELF CARE / HOMELESS Condition: STABLE Referrals: TY LOWE MD (PCP) Additional Instructions: You were seen for syncope. You should make sure to drink plenty of fluids. It is unclear what caused your symptoms but your initial evaluation did not show any concerning symptoms or features. Return to the ED immediately if you develop worsening symptoms, chest pain, shortness of breath, numbness, tingling, weakness, vision change, or any other new or concerning symptoms. You should follow up with your primary care doctor and other outpatient specialists in a few days to have your labs repeated due to your low potassium level today found to be 3.1 and to be evaluated again. Problem Qualifiers TEVIN COMBS DO Jul 28, 2021 15:20
--- NOTE | 2021-07-28 15:41 | EKG ---
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
[2021-07-28 16:01] LABS: BASO % 0 % (0-3); EOS % 11 % (0-3); HEMATOCRIT 29.1 % (36.0-47.0); HEMOGLOBIN 9.5 g/dL (12.0-15.5); LYMPH # 1.2 x10^3/uL (1.0-4.8); LYMPH % 13 % (24-48); MEAN CORPUSCULAR HEMOGLOBIN 31 pg (25-35); MEAN CORPUSCULAR HGB CONC 33 g/dL (31-37); MEAN CORPUSCULAR VOLUME 94 fL (79-100); MONO % 12 % (0-9); NEUT # 5.7 x10^3uL (1.8-7.7); NEUT % 64 % (31-73); PLATELET COUNT 165 x10^3/uL (140-400); RED BLOOD COUNT 3.11 x10^6/uL (3.50-5.40); RED CELL DISTRIBUTION WIDTH 17.9 % (11.5-14.5); WHITE BLOOD COUNT 8.9 x10^3/uL (4.0-11.0)
[2021-07-28 16:13] LABS: CALCIUM 8.9 mg/dL (8.5-10.1); CREATININE 3.1 mg/dL (0.6-1.0); GFR 17.8; POTASSIUM 3.1 mmol/L (3.5-5.1)
[2021-07-28 16:26] LABS: MAGNESIUM 1.8 mg/dL (1.8-2.4)
[2021-07-28] MEDS ORDERED: POTASSIUM CHLORIDE 20 MEQ TABLET.ER. PO ONE (16:30)
[2021-07-28] MEDS ORDERED: IV NORMAL SALINE 500ML 500 ML IV ONE (16:30)
--- NOTE | 2021-07-28 17:38 | RAD ---
CT HEAD AND C-SPINE WO History: Syncope. Fall posterior head and midline neck pain. Comparison: 04/12/2021 Technique: Noncontrast CT of the head and cervical spine. Findings: CT HEAD: There is no evidence for intracranial mass or hemorrhage. There is no hydrocephalus or midline shift. No abnormal extra-axial fluid collections are present. No evidence of acute territorial infarction. Mild volume loss. Minimal left greater than right maxillary sinus nuchal periosteal thickening. The skull and scalp are within normal limits. CT CERVICAL SPINE: There is no evidence for fracture in the cervical spine. Alignment is normal. Mild cervical spondylosis. No destructive osseous lesions are seen. Carotid and vertebral artery atherosclerotic calcifications. Limited evaluation of the soft tissues of the neck and of the upper chest is unremarkable. Impression: 1. No acute intracranial findings. 2. No acute osseous abnormality in the cervical spine. ------- Exposure: One or more of the following individualized dose reduction techniques were utilized for thi s examination: 1. Automated exposure control 2. Adjustment of the mA and/or kV according to patient size 3. Use of iterative reconstruction technique. Electronically signed by: Carlos Costello MD (07/28/2021 5:36 PM) [facility]
--- NOTE | 2021-07-28 17:52 | RAD ---
EXAM: CT CHEST WITHOUT CONTRAST HISTORY: Fall, midline pain at T3. Left lateral chest wall pain. COMPARISON: Chest radiograph 04/12/2021 TECHNIQUE: Helical CT of the chest performed without contrast. Coronal and sagittal reformats were o btained. One or more of the following individualized dose reduction techniques were utilized for this examinat ion: 1. Automated exposure control 2. Adjustment of the mA and/or kV according to patient size 3. Use of iterative reconstruction technique. FINDINGS: Thyroid gland and thoracic inlet: Thyroid gland is normal. Heart and great vessels: Heart is mildly enlarged. There are surgical changes of CABG. [place] coronar y artery calcifications. There is a defibrillator terminating in the right ventricle. A right chest w all port tip terminates at the superior cavoatrial junction. The thoracic aorta is normal in caliber. There is mild calcified moderate calcified aortic atherosclerosis with probable narrowing of the pro ximal left subclavian artery. The main pulmonary artery is enlarged measuring 4.4 cm consistent with pulmonary arterial hypertension. Mediastinum and coreen: No lymphadenopathy. There are small mediastinal lymph nodes, nonspecific. Small hiatal hernia. Lungs and pleura: There is a 1 cm nodular opacity in the lateral left lower lobe (image 66, series 2) . There are a few additional scattered 2 to 3 mm pulmonary nodules. Mild airway wall thickening. No p leural effusion or pneumothorax. Chest wall and axillae: No axillary lymphadenopathy. Upper abdomen: There is a 2.1 cm benign fat-containing left adrenal nodule. Bilateral adrenal calcifi cations are likely sequela of remote adrenal hemorrhages. There is severe right renal atrophy. Bones: Mild superior endplate deformities of T2 and T3, likely old or degenerative. No definite acute fracture. IMPRESSION: 1. Cardiomegaly. Surgical changes of CABG. Moderate calcified atherosclerosis. 2. Enlarged main pulmonary artery consistent with pulmonary arterial hypertension. 3. 1 cm nodular opacity in the lateral left lower lobe. Recommend follow-up CT in 3 months to ensure resolution. 4. No acute fracture. Mild chronic appearing superior endplate deformities of T2 and T3. 5. Severe right renal atrophy. Electronically signed by: Lesli Black MD (07/28/2021 5:49 PM) [facility]
[2021-07-28 18:16] VITALS: BP 120/87
== END 2021-07-28 18:17 | disposition home or self-care (01) ==
LOC: ER 15:01
DX: R55 Syncope and collapse (principal); E87.6 Hypokalemia; R51.9 Headache, unspecified; M54.2 Cervicalgia; R07.89 Other chest pain; Z91.81 History of falling; Z95.1 Presence of aortocoronary bypass graft; Z88.2 Allergy status to sulfonamides
CPT/HCPCS: 36415; 70450; 71250; 72125; 80048; 82947; 83735; 83880; 84443; 84484; 85025; 93005; 96360; 96361; 99285; J7040

== ENCOUNTER 2021-07-28 23:33 | Emergency (ER) | payer MEDICARE ==
[~2021-07-28] VITALS: Ht 157.5 cm; Wt 75.8 kg
[2021-07-28] MEDS ORDERED: IV RINGERS SOLUTION,LACTATED 1,000 ML IV ONE (23:45)
--- NOTE | 2021-07-28 23:50 | PHYS DOC ---
Past History Past Medical History: Cancer Additional Past Medical Histor: multiple myeloma, uterine CA, stage V kidney Past Surgical History: Angioplasty, Cancer Surgery, Coronary Bypass Surgery, Other Additional Past Surgical Histo: stents Alcohol Use: None Adult General Chief Complaint Chief Complaint: SYNCOPE HPI HPI Patient is a 76-year-old female with a past medical history of CAD, CHF, insulin-dependent diabetes who presents to the emergency department with a chief complaint of syncope. Patient was in the emergency department earlier in the day with the same symptoms and was sent home. States that she was having a bowel movement when this happened. Denies any recent travel, traumas, illnesses, fevers, chest pain, shortness of breath, abdominal pain, nausea, vomiting, dysuria, hematuria, blood in the stool or diarrhea. Denies any known ill contacts. Denies alcohol or drug use. States she had not taken any of her medications today. States she checks her blood sugar occasionally. Review of Systems Review of Systems Review of systems otherwise unremarkable except noted in HPI Allergies Allergies Allergies Coded Allergies Type Severity Reaction Last Updated Verified Sulfa (Sulfonamide Antibiotics) Allergy Unknown 04/11/21 Yes Physical Exam Physical Exam Constitutional: Well developed, well nourished, no acute distress, non-toxic appearance. [] HENT: Normocephalic, atraumatic, bilateral external ears normal, oropharynx moist, no oral exudates, nose normal. [] Eyes: conjunctiva normal, no discharge. [] Neck: Normal range of motion, no tenderness, supple, no stridor. [] Cardiovascular:Heart rate regular rhythm, no murmur [] Lungs & Thorax: Bilateral breath sounds clear to auscultation [] Abdomen: soft, no tenderness, no masses, no pulsatile masses. [] Skin: Warm, dry, no erythema, no rash. [] Back: no CVA tenderness. [] Extremities: No tenderness, no cyanosis, no clubbing, ROM intact, no edema. [] Neurologic: Alert and oriented X 3, normal motor function, normal sensory function, no focal deficits noted. [] Psychologic: Affect normal, judgement normal, mood normal. [] EKG EKG [] Radiology/Procedures Radiology/Procedures [] Heart Score C/O Chest Pain: No Risk Factors: Risk Factors: DM, Current or recent (<one month) smoker, HTN, HLP, family history of CAD, obesity. Risk Scores: Risk Factors: DM, Current or recent (<one month) smoker, HTN, HLP, family history of CAD, obesity. Course & Med Decision Making Course & Med Decision Making Patient is a 76-year-old female with multiple medical issues who presents with syncope Vital signs not concerning. Physical exam noted above. Blood sugar 347. Placed on the monitor with IV access established and IV fluid begun. Laboratory analysis with a creatinine of 3.2, elevated BNP, both of which approximately baseline. D-dimer elevated however patient's creatinine is 3.2 and could benefit from VQ scan to evaluate for PE. Patient in the emergency department earlier today with CT of the head and neck with no acute findings. CT of the chest with pulmonary hypertension. EKG with a rate of 89, QRS of 92, QTc of 476, no STEMI. Troponin normal. Urinalysis not concerning. Given the fact that patient has had 3 episodes of syncope and was in the emergency department earlier in the day, and could benefit from a VQ scan to ev aluate for PE given her increased risk secondary to cancer advised admission to the hospital for continued evaluation and treatment. Family grateful, verbalized understanding and agreed with plan of transfer and admission to [facility] [facility]. However hospitalist Dr. Perez declined saying he did not feel comfortable taking care of the patient and patient was transferred to [place]. [] Dragon Disclaimer Dragon Disclaimer This electronic medical record was generated, in whole or in part, using a voice recognition dictation system. Departure Departure: Impression: Primary Impression: Syncope Additional Impressions: RACHAEL (acute kidney injury) Pulmonary hypertension Multiple myeloma Disposition: ADMITTED INPATIENT Admitting Physician: Brown Perez, Other Condition: STABLE Referrals: TY LOWE MD (PCP) Problem Qualifiers MORGAN ENGLE MD Jul 28, 2021 23:50
[2021-07-29 00:40] LABS: BASO % 0 % (0-3); EOS # 0.9 x10^3/uL (0.0-0.7); EOS % 11 % (0-3); HEMATOCRIT 28.3 % (36.0-47.0); HEMOGLOBIN 9.2 g/dL (12.0-15.5); LYMPH # 1.3 x10^3/uL (1.0-4.8); LYMPH % 17 % (24-48); MEAN CORPUSCULAR HEMOGLOBIN 30 pg (25-35); MEAN CORPUSCULAR HGB CONC 32 g/dL (31-37); MEAN CORPUSCULAR VOLUME 94 fL (79-100); MONO % 12 % (0-9); NEUT # 4.8 x10^3uL (1.8-7.7); NEUT % 60 % (31-73); PLATELET COUNT 164 x10^3/uL (140-400); RED BLOOD COUNT 3.02 x10^6/uL (3.50-5.40); RED CELL DISTRIBUTION WIDTH 18.1 % (11.5-14.5)
--- NOTE | 2021-07-29 00:49 | EKG ---
[address] [address] Test Date: 2021-07-28 Test Time: 23:46:36 Pat Name: SHIVANI RODRIGUEZ Department: Room: Gender: F Showcase Trimmer: : 1945 Requested By: MORGAN ENGLE Order Number: [id number] Reading MD: Salvatore Kaur Measurements Intervals [place] Rate: 89 P: 35 HI: 190 QRS: 20 QRSD: 92 T: 93 QT: 390 QTc: 476 Interpretive Statements SINUS RHYTHM VENTRICULAR PREMATURE COMPLEX T ABNORMALITY IN HIGH LATERAL LEADS PROLONGED QT Electronically Signed On 07-31-2021 14:03:11 [employer]OR CHECK[employer]OVING [employer] YARN by Salvatore Kaur
[2021-07-29 01:11] LABS: CALCIUM 8.8 mg/dL (8.5-10.1); CREATININE 3.2 mg/dL (0.6-1.0); GFR 17.1; POTASSIUM 3.5 mmol/L (3.5-5.1)
[2021-07-29 01:25] LABS: ALBUMIN 3.3 g/dL (3.4-5.0); ALBUMIN/GLOBULIN RATIO 1.1 (1.0-1.7); MAGNESIUM 1.8 mg/dL (1.8-2.4); PHOSPHORUS 3.8 mg/dL (2.6-4.7); TOTAL BILIRUBIN 0.5 mg/dL (0.2-1.0); TOTAL PROTEIN 6.3 g/dL (6.4-8.2)
[2021-07-29] MEDS ORDERED: ACYCLOVIR 200 MG CAPSULE PO ONE (01:30)
[2021-07-29] MEDS ORDERED: diphenhydrAMINE 50 MG/ML VIAL IVP ONE (01:30)
[2021-07-29] MEDS ORDERED: INSULIN GLARGINE SYRINGE. SQ SCH (01:45)
[2021-07-29 02:25] LABS: BACTERIA,URINE 0 /HPF (0-FEW); CLARITY,URINE CLEAR; COLOR,URINE YELLOW; GLUCOSE,URINE NEG (NEG); NITRITE,URINE NEG (NEG); RBC,URINE OCC /HPF (0-2); SQUAMOUS EPITHELIAL CELL,UR MOD /LPF; UROBILINOGEN,URINE 0.2 mg/dL (0.2 mg/dL)
[2021-07-29] MEDS ORDERED: IOHEXOL 350 MG/ML 100 ML VIAL. IV ONE (02:30)
[2021-07-29] MEDS ORDERED: HEPARIN for SUB-Q USE 5,000 UNIT/ML VIAL. SQ ONE (02:45)
[2021-07-29 03:49] VITALS: BP 112/60
== END 2021-07-29 04:04 | disposition admitted as inpatient to this hospital (09) ==
LOC: ER 23:33 → UNDOADMIN 07-29 02:31 → ER HOLD 07-29 02:31 → ER 07-29 04:04
DX: N17.9 Acute kidney failure, unspecified (principal); R55 Syncope and collapse; I11.0 Hypertensive heart disease with heart failure; I50.9 Heart failure, unspecified; E11.9 Type 2 diabetes mellitus without complications; I25.810 Atherosclerosis of coronary artery bypass graft(s) without angina pectoris; Z20.822 Contact with and (suspected) exposure to COVID-19; Z85.79 Personal history of other malignant neoplasms of lymphoid, hematopoietic and related tissues; Z88.2 Allergy status to sulfonamides
CPT/HCPCS: 36415; 80053; 81001; 82803; 83735; 83880; 84100; 84484; 85025; 85379; 85610; 85730; 87426; 93005; 96361; 96372; 96374; 99285; C9803; J1200; J1644; J1815; J7120; U0003

== ENCOUNTER 2021-08-03 13:18 | Emergency (ER) | payer MEDICARE ==
[~2021-08-03] VITALS: Ht 157.5 cm; Wt 75.8 kg
[2021-08-03] MEDS ORDERED: IV NORMAL SALINE 500ML 500 ML IV ONE (13:45)
--- NOTE | 2021-08-03 13:47 | PHYS DOC ---
Past History Past Medical History: Cancer Additional Past Medical Histor: multiple myeloma, uterine CA, stage V kidney Past Surgical History: Angioplasty, Cancer Surgery, Coronary Bypass Surgery, Other Additional Past Surgical Histo: stents Alcohol Use: None Adult General Chief Complaint Chief Complaint: HYPOTENSION HPI HPI Patient is a 76-year-old female presenting via POV by son for hypotension. Patient recently seen and evaluated multiple times in our facility and subsequently transferred to [facility] for syncope. She was evaluated extensively at that time and ultimately discharged home 48 hours ago with decreased dose of carvedilol, complete discontinuation of hydralazine, and new prescription for 5 mg midodrine 3 times daily. Nonetheless, over past 24 hours patient has had continued hypotensive readings. It was reported that because of her prior episodes were likely orthostatic in nature prompting decrease in blood pressure agent. She was prescribed midodrine medication which has yet to be picked up and/or administered per patient and son at bedside. Patient has had consistent readings no greater than 90/60 for past 12 hours and this morning, prior to getting ready to attend outpatient oncology visit, patient was more lethargic than usual. Son checked blood pressure which recorded 70/40, he contacted oncologist office who appropriately advised patient be seen at local emergency room for evaluation. On arrival, patient reports she feels better but still tired and devoid of energy. No falls or obvious trauma. Review of Systems Review of Systems Fourteen body systems of review of systems have been reviewed. See HPI for pertinent positives and negative responses, other jaime all other systems are negative, non-pertinent or non-contributory Allergies Allergies Allergies Coded Allergies Type Severity Reaction Last Updated Verified Sulfa (Sulfonamide Antibiotics) Allergy Unknown 04/11/21 Yes Physical Exam Physical Exam Constitutional: Well developed, well nourished, no acute distress, non-toxic appearance. HENT: Normocephalic, atraumatic, bilateral external ears normal, oropharynx moist, no oral exudates, nose normal. Eyes: PERRLA, EOMI, conjunctiva normal, no discharge. Neck: Normal range of motion, no tenderness, supple, no stridor. Cardiovascular: Heart rate regular, sinus rhythm, no murmurs rubs or gallops Lungs & Thorax: Bilateral breath sounds clear to auscultation Abdomen: Bowel sounds normal, soft, no tenderness, no masses, no pulsatile masses. Nonsurgical abdomen, no peritoneal signs Skin: Warm, dry, no erythema, no rash. Back: No tenderness, no CVA tenderness. Extremities: No tenderness, no cyanosis, no clubbing, ROM intact, no edema. Neurologic: Alert and oriented X 3, grossly normal motor & sensory function, no focal deficits noted. Psychologic: Affect normal, judgement normal, mood normal. Current Patient Data Vital Signs Vital Signs Date Time Temp Pulse Resp B/P (MAP) Pulse Ox O2 Delivery O2 Flow Rate FiO2 08/03/21 13:41 98.1 90 18 81/51 (61) 99 Room Air Lab Results Laboratory Tests Test 08/03/21 14:20 White Blood Count 8.0 x10^3/uL Red Blood Count 2.74 x10^6/uL Hemoglobin 8.4 g/dL Hematocrit 25.9 % Mean Corpuscular Volume 94 fL Mean Corpuscular Hemoglobin 31 pg Mean Corpuscular Hemoglobin Concent 33 g/dL Red Cell Distribution Width 17.2 % Platelet Count 217 x10^3/uL Neutrophils (%) (Auto) 63 % Lymphocytes (%) (Auto) 15 % Monocytes (%) (Auto) 14 % Eosinophils (%) (Auto) 8 % Basophils (%) (Auto) 1 % Neutrophils # (Auto) 5.1 x10^3uL Lymphocytes # (Auto) 1.2 x10^3/uL Monocytes # (Auto) 1.1 x10^3/uL Eosinophils # (Auto) 0.6 x10^3/uL Basophils # (Auto) 0.0 x10^3/uL Sodium Level 141 mmol/L Potassium Level 4.2 mmol/L Chloride Level 103 mmol/L Carbon Dioxide Level 31 mmol/L Anion Gap 7 Blood Urea Nitrogen 53 mg/dL Creatinine 2.5 mg/dL Estimated GFR (Cockcroft-Gault) 22.8 Glucose Level 93 mg/dL Calcium Level 9.1 mg/dL Current Medications Medications (Trade) Dose Ordered Sig/Britany Route PRN Reason Start Time Stop Time Status Last Admin Dose Admin Sodium Chloride 500 ml @ 0 mls/hr 1X ONCE IV 08/03/21 13:45 08/03/21 14:12 DC 08/03/21 14:28 EKG EKG EKG ordered and interpreted by myself at 1410 hrs. as sinus rhythm at 86 bpm, unremarkable intervals, no axis deviation, no acute ischemic findings, no STEMI Radiology/Procedures Radiology/Procedures XR CHEST 1V INDICATION: hypotension . COMPARISON STUDY: CT chest 07/28/2021. FINDINGS: Right subclavian Port-A-Cath. Left pectoral ICD/pacemaker Lungs: Normal lung volume. No pulmonary mass or consolidation. The tracheobronchial tree and hilar structures are normal. Pleura: No pleural effusion or pneumothorax. Heart and Mediastinum: Cardiomegaly. Tortuous atherosclerotic aorta. IMPRESSION: No focal airspace disease. Electronically signed by: Mathew Harper MD (08/03/2021 2:43 PM) [id number] Heart Score C/O Chest Pain: No Risk Factors: Risk Factors: DM, Current or recent (<one month) smoker, HTN, HLP, family history of CAD, obesity. Risk Scores: Risk Factors: DM, Current or recent (<one month) smoker, HTN, HLP, family history of CAD, obesity. Course & Med Decision Making Course & Med Decision Making Airway patent, breathing unlabored, IV access and vitals obtained concerning for hypotension HPI physical exam and comprehensive ER work-up nonconcerning for any emergent or surgical issues I reviewed patient's recent hospitalization at length, appears she was discontinued from carvedilol and had new prescription for midodrine provided, this has yet to be filled and/or used in outpatient setting Patient hypotensive on arrival today, she is likely experiencing vasovagal/orth ostatic hypotension. IV fluid and midodrine provided with immediate improvement in patient's low blood pressure and overall symptoms I disclosed need for further diagnostic work-up but patient and son at bedside felt reassured, son filled midodrine prior to ER departure. Patient has close outpatient follow-up in upcoming 24 hours with primary care physician which I feel is appropriate Dragon Disclaimer Dragon Disclaimer This electronic medical record was generated, in whole or in part, using a voice recognition dictation system. Departure Departure: Impression: Primary Impression: Hypotension Disposition: 01 HOME / SELF CARE / HOMELESS Condition: STABLE Referrals: TY LOWE MD (PCP) Patient Instructions: Hypotension Additional Instructions: You were seen for hypotension. Your physical exam was reassuring. Your labs and imaging here were unremarkable. Your blood pressure improved here with IV fluid rehydration and midodrine administration. You need to follow up with your primary care physician for further evaluation and treatment of your blood pressure. You should return to the ED if you develop chest pain, shortness of breath, severe headache, or any other new or concerning symptoms. Check your blood pressures over the next few days after you take your medications but before any caffeine and keep track of these. Call your primary care physician on the next business day and follow up in the clinic with these results as they may need to adjust your medications. Again, if any new or worsening symptoms, please return to the ED or seek evaluation by a healthcare professional. TEVIN COMBS DO Aug 03, 2021 13:47
--- NOTE | 2021-08-03 14:08 | EKG ---
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
[2021-08-03 14:42] LABS: BASO % 1 % (0-3); EOS # 0.6 x10^3/uL (0.0-0.7); EOS % 8 % (0-3); HEMATOCRIT 25.9 % (36.0-47.0); HEMOGLOBIN 8.4 g/dL (12.0-15.5); LYMPH # 1.2 x10^3/uL (1.0-4.8); LYMPH % 15 % (24-48); MEAN CORPUSCULAR HEMOGLOBIN 31 pg (25-35); MEAN CORPUSCULAR HGB CONC 33 g/dL (31-37); MEAN CORPUSCULAR VOLUME 94 fL (79-100); MONO # 1.1 x10^3/uL (0.0-1.1); MONO % 14 % (0-9); NEUT # 5.1 x10^3uL (1.8-7.7); NEUT % 63 % (31-73); PLATELET COUNT 217 x10^3/uL (140-400); RED BLOOD COUNT 2.74 x10^6/uL (3.50-5.40); RED CELL DISTRIBUTION WIDTH 17.2 % (11.5-14.5)
--- NOTE | 2021-08-03 14:45 | RAD ---
XR CHEST 1V INDICATION: hypotension . COMPARISON STUDY: CT chest 07/28/2021. FINDINGS: Right subclavian Port-A-Cath. Left pectoral ICD/pacemaker Lungs: Normal lung volume. No pulmonary mass or consolidation. The tracheobronchial tree and hilar st ructures are normal. Pleura: No pleural effusion or pneumothorax. Heart and Mediastinum: Cardiomegaly. Tortuous atherosclerotic aorta. IMPRESSION: No focal airspace disease. Electronically signed by: Mathew Harper MD (08/03/2021 2:43 PM) [id number]
[2021-08-03 14:55] LABS: CALCIUM 9.1 mg/dL (8.5-10.1); CREATININE 2.5 mg/dL (0.6-1.0); GFR 22.8; POTASSIUM 4.2 mmol/L (3.5-5.1)
[2021-08-03] MEDS ORDERED: MIDODRINE 5 MG TABLET PO ONE (15:30)
[2021-08-03] MEDS ORDERED: HEPARIN PF 500 UNIT/5 ML DISP.SYRIN. ONE (16:14)
[2021-08-03 16:30] VITALS: BP 103/56
[2021-08-03] MEDS ORDERED: HEPARIN PF 500 UNIT/5 ML DISP.SYRIN. IVP ONE (16:45)
== END 2021-08-03 16:30 | disposition home or self-care (01) ==
LOC: ER 13:18
DX: I95.9 Hypotension, unspecified (principal); R55 Syncope and collapse; Z95.1 Presence of aortocoronary bypass graft; Z88.2 Allergy status to sulfonamides
CPT/HCPCS: 36415; 71045; 80048; 84484; 85025; 93005; 99285; J7040; 96361; 96374